=== PATIENT | female | born 1945 | race Caucasian/White ===

== ENCOUNTER → 2017-10-02 | Outpatient (CLI) | payer MEDICARE, BC ==
[~2017-10-02] MED LIST: ACEROLA C500 M2 PO; APAP500 PO; CLARITIN10 MG PO; COLESTID1 GM PO; DITROPAN XL10 M1 PO; FLOVENT HFA 1110 MCG INH; KEFLEX500 MG PO; LIPITOR10 MG PO; LISINOPRIL20 MG PO; MAG-OXIDE400 MG PO; NAPROSYN500 MG PO; NEURONTIN 300300 M1 PO; NORVASC5 MG PO; ORAZINC220 MG PO; PERCOCET 10-321 EACH PO; PROPRANOLOL 1010 MG PO; UNICOMPLEX M TA1 TA1 PO; XARELTO20 MG PO
[2017-10-02 11:07] LABS: CREATININE 1.1 mg/dL (0.6-1.3)
== END ==
LOC: M.CT 10:29 → M.LAB 10:30 → M.CT 11:30
PROVIDERS: Urology
DX: N28.1 Cyst of kidney, acquired (principal); K42.9 Umbilical hernia without obstruction or gangrene; E66.01 Morbid (severe) obesity due to excess calories; N28.9 Disorder of kidney and ureter, unspecified; N94.89 Other specified conditions associated with female genital organs and menstrual cycle; Z90.5 Acquired absence of kidney; Z85.528 Personal history of other malignant neoplasm of kidney